=== PATIENT | male | born 1955 | race Caucasian/White ===

== ENCOUNTER 2021-08-04 05:28 | Observation (INO) | payer MEDICARE ==
[2021-07-28 14:52] VITALS: BMI 26.3
[2021-07-31 11:54] LABS: Hemoglobin 17.7 g/dL (13.5-17.5); Mean Corpuscular HGB CONC 33.1 g/dL (32.0-36.0); Mean Corpuscular Hemoglobin 30.4 pg (27.0-33.0); Mean Corpuscular Volume 91.9 fl (81.2-95.1); Mean Platelet Volume 9.8 fl (7.4-10.4); Platelet Count 303 10x3/uL (150-450); RBC Distribution Width 13.5 % (11.5-14.5); Red Blood Cell (RBC) Count 5.82 10x6/uL (4.32-5.72); White Blood Cell (WBC) Count 6.6 10x3/uL (3.5-10.5)
[2021-07-31 12:28] LABS: PTT 28.9 sec (22.0-33.0); Prothrombin Time 10.9 sec (9.5-12.1)
[2021-07-31 12:35] LABS: Anion Gap 16 mmol/L (10-20); BUN (Urea Nitrogen) 14 mg/dL (8.4-25.7); Calc. Creatinine Clearance 0 mL/min (70-130); Calcium 10.2 mg/dL (7.8-10.44); Carbon Dioxide 27 mmol/L (23-31); Chloride 101 mmol/L (98-107); Glucose 127 mg/dL (80-115); Potassium 4.5 mmol/L (3.5-5.1); Sodium 139 mmol/L (136-145)
[2021-07-31 23:48] LABS: SARS-CoV-2 PCR by NAA Not Detected (NotDetected)
[2021-08-05 16:58] VITALS: BP 139/77; TEMP 97.5
== END 2021-08-05 17:32 | disposition home or self-care (01) ==
LOC: CSHSDC 05:28 → INTOOBSV 09:58 → CSHTELE 09:58 → UNDOADMIN 13:43 → CSHTELE 13:43
PROVIDERS: ADMIT Orthopaedic Surgery; ATTEND Orthopaedic Surgery
PROC: 0RG20A0 Fusion of 2 or more Cervical Vertebral Joints with Interbody Fusion Device, Anterior Approach, Anterior Column, Open Approach (ICD-10-PCS; principal; 2021-08-04)
PROC: 0RB30ZZ Excision of Cervical Vertebral Disc, Open Approach (ICD-10-PCS; 2021-08-04)
DX: M50.122 Cervical disc disorder at C5-C6 level with radiculopathy (principal); M48.02 Spinal stenosis, cervical region; Z79.02 Long term (current) use of antithrombotics/antiplatelets; Z79.899 Other long term (current) drug therapy
CPT/HCPCS: 22551; 22845; 22853; 72050; 80048; 85027; 85610; 85730; 86850; 86900; 86901; 96365; 97139 ×2; 97535; C1713 ×4; C1762; C1889; G0378 ×2; U0003; U0005; J0690; J1100; J1170; J2001; J2250; J2405; J2704; J3010; J7611; S0028

== ENCOUNTER 2021-09-11 13:10 | Outpatient (CLI) | payer MEDICARE | END 2021-09-11 13:11 | disposition home or self-care (01) | LOC: CSHRAD 13:10 | PROVIDERS: ATTEND Orthopaedic Surgery | DX: M54.2 Cervicalgia (principal); Z98.890 Other specified postprocedural states; M47.812 Spondylosis without myelopathy or radiculopathy, cervical region | CPT/HCPCS: 72040 ==

== ENCOUNTER 2023-01-28 09:08 | Day surgery (SDC) | payer MEDICARE ==
[2023-01-28 12:04] VITALS: BP 151/87; TEMP 98.8
== END 2023-01-28 11:34 | disposition home or self-care (01) ==
LOC: CSHRAD 09:08
PROVIDERS: ATTEND Specialist
PROC: B02BYZZ Computerized Tomography (CT Scan) of Spinal Cord using Other Contrast (ICD-10-PCS; principal; 2023-01-28)
DX: M47.22 Other spondylosis with radiculopathy, cervical region (principal); I10 Essential (primary) hypertension; K21.9 Gastro-esophageal reflux disease without esophagitis; Z98.890 Other specified postprocedural states; Z95.5 Presence of coronary angioplasty implant and graft; Z87.891 Personal history of nicotine dependence; Z79.02 Long term (current) use of antithrombotics/antiplatelets; M96.1 Postlaminectomy syndrome, not elsewhere classified; G90.511 Complex regional pain syndrome I of right upper limb
CPT/HCPCS: 62302; 72126